=== PATIENT | male | born 1995 | race Caucasian/White ===

== ENCOUNTER 2018-09-11 11:04 | Emergency (ER) | payer BC ==
[2018-09-11] MEDS ORDERED: HYDROcodone/ACETAMIN 5-325 MG* 1 TAB PO ONE (12:29)
[2018-09-11 13:03] VITALS: BP 118/49
--- NOTE | 2018-09-11 13:04 | ED ---
Skin Complaint - HPI Summary HPI Summary: Patient is a 23-year-old male presenting to the ED with right-sided groin/ suprapubic abscess. He states this been present 2 days and has been enlarging. He states there is been a small mass which is measured approximately 0.5 cm in width there for several years and it just became infected a few days ago. He thought originally it was a ingrown hair due to him shaving to the area. He denies any fevers, sweats, chills. He states he feels otherwise well. He has had abscesses in the past, however they have never needed to be drained and usually drain spontaneously. - History of Current Complaint Chief Complaint: EDRashSkinAbscess Time Seen by Provider: 09/11/18 11:22 Stated Complaint: ABD MASS PER PT FRIEND Hx Obtained From: Patient Onset/Duration: Started Hours Ago Skin Exposure Onset/Duration: Hours Ago Timing: Constant Onset Severity: Moderate Current Severity: Moderate Pain Intensity: 6 Pain Scale Used: 0-10 Numeric Skin Location: Other: - suprapubic/r groin area Character: Pain, Redness, Raised, Painful Aggravating Symptom(s): Nothing Alleviating Symptom(s): Nothing Associated Signs & Symptoms: Negative - Allergy/Home Medications Allergies/Adverse Reactions: Allergies Allergy/AdvReac Type Severity Reaction Status Date / Time No Known Allergies Allergy Unverified 09/11/18 11:09 PMH/Surg Hx/FS Hx/Imm Hx Previously Healthy: Yes Endocrine/Hematology History: Denies: Hx Diabetes, Hx Thyroid Disease Cardiovascular History: Denies: Hx Hypertension Respiratory History: Denies: Hx Asthma, Hx Chronic Obstructive Pulmonary Disease (COPD) GI History: Denies: Hx Ulcer Infectious Disease History: No Infectious Disease History: Denies: Hx Hepatitis, Hx Human Immunodeficiency Virus (HIV), History Other Infectious Disease, Traveled Outside the [place] in Last 30 Days - Family History Known Family History: Negative: Cardiac Disease, Hypertension, Diabetes - Social History Occupation: Employed Full-time Lives: With Family Alcohol Use: Occasionally Hx Substance Use: No Substance Use Type: Reports: None Hx Tobacco Use: No Smoking Status (MU): Never Smoked Tobacco Review of Systems Negative: Fever, Chills, Fatigue, Skin Diaphoresis Negative: Palpitations, Chest Pain Negative: Shortness Of Breath, Cough Genitourinary: Negative Positive: no symptoms reported, see HPI Negative: Arthralgia, Myalgia Positive: Other - abscess to suprapubic/right groin area All Other Systems Reviewed And Are Negative: Yes Physical Exam Triage Information Reviewed: Yes Vital Signs On Initial Exam: Initial Vitals Temp Pulse Resp BP Pulse Ox 97.9 F 71 18 131/77 99 09/11/18 11:07 09/11/18 11:07 09/11/18 11:07 09/11/18 11:07 09/11/18 11:07 Vital Signs Reviewed: Yes Appearance: Positive: Well-Appearing, Well-Nourished Skin: Positive: Skin Color Reflects Adequate Perfusion, Other - Right groin abscess Head/Face: Positive: Normal Head/Face Inspection Eyes: Positive: EOMI, FORTUNATO, Conjunctiva Clear Neck: Positive: Supple, Nontender Respiratory/Lung Sounds: Positive: Clear to Auscultation, Breath Sounds Present Cardiovascular: Positive: RRR, Pulses are Symmetrical in both Upper and Lower Extremities Musculoskeletal: Positive: Strength/ROM Intact Neurological: Positive: Speech Normal Psychiatric: Positive: Affect/Mood Appropriate AVPU Assessment: Alert Diagnostics - Vital Signs Vital Signs Temp Pulse Resp BP Pulse Ox 09/11/18 11:07 97.9 F 71 18 131/77 99 - Laboratory Lab Statement: Any lab studies that have been ordered have been reviewed, and results considered in the medical decision making process. Course/Dx - Course Course Of Treatment: Patient is evaluated for right groin/suprapubic abscess. The abscess is approximately 2 cm in diameter and is come to ahead with a white tip. Time and obtained. Chlorhexidine applied. Sterile procedure. 1 mL lidocaine with good effect. Small 0.5 cm incision to the area with copious amount of purulent drainage. No tracking or tunneling. Unable to decipher where "mass" is or has been identified. Patient will follow up with surgeon. He is given Bactrim. Wound culture sent and is pending. Patient is given hydrocodone in the ED and a one-day supply. - Diagnoses Provider Diagnoses: Abscess Discharge - Sign-Out/Discharge Documenting (check all that apply): Patient Departure Patient Received Moderate/Deep Sedation with Procedure: No - Discharge Plan Condition: Stable Disposition: HOME Prescriptions: HYDROcodone/ACETAMIN 5-325 MG* [Driscoll 5-325 TAB*] 1 tab PO Q4H PRN #6 tab MDD 6 PRN Reason: Pain Sulfamethox/Trimethoprim DS* [Bactrim DS 800/160 TAB*] 1 tab PO BID #10 tab Patient Education Materials: Abscess (ED) Referrals: Aimee Sandra MD [Medical Doctor] - No Primary Care Phys,NOPCP [Primary Care Provider] - Additional Instructions: Take 1 tab twice daily x 5 days Please follow up with your surgeon Hydrocodone up to every 4 hours as needed for pain - Billing Disposition and Condition Condition: STABLE Disposition: Home
== END 2018-09-11 12:59 | disposition home or self-care (01) ==
LOC: ED 11:04
DX: L02.214 Cutaneous abscess of groin (principal)
CPT/HCPCS: 10060; 87070; 87076; 87205; 87640; 87641; 99282

== ENCOUNTER → 2018-09-11 21:24 | Emergency (ER) | payer BC ==
[2018-09-11 21:31] VITALS: BP 129/61
--- NOTE | 2018-09-14 05:36 | PN ---
Progress Note - Progress Note Date of Service: 09/11/18 Note: wound culture grew finegoldia magna This is normal deanna in the GI tract patient was placed on bactrim prior to discharge no sensitivies are performed for this bacteria likely contaminant
== END | disposition left against medical advice (07) ==
LOC: ED 21:24
DX: R11.2 Nausea with vomiting, unspecified (principal); Z53.21 Procedure and treatment not carried out due to patient leaving prior to being seen by health care provider